=== PATIENT | female | born 1990 | race African-American/Black ===

== ENCOUNTER 2023-02-14 14:45 | Inpatient (IN) | payer OTHER ==
[~2023-02-14] VITALS: Ht 162.6 cm; Wt 97.1 kg
[~2023-02-14 14:45] MED LIST: FERR325E14 PO; IBUP-2213 PO
[2023-02-14] MEDS ORDERED: CARBOPROST 250 MCG/ML AMP IM PRN (15:15)
[2023-02-14] MEDS ORDERED: METHYLERGONOVINE 0.2 MG/ML AMP IM PRN (15:15)
[2023-02-14] MEDS ORDERED: LACTATED RINGERS 500 ML IV SCH (15:30)
[2023-02-14] MEDS ORDERED: AMPICILLIN 2,000 MG in NACL 0.9% MINI-BAG PLUS 100 ML IV ONE (15:30)
[2023-02-14] MEDS: LACTATED RINGERS 1,000 ML IV SCH ×2 (15:36→22:17)
[2023-02-14] MEDS ORDERED: AMPICILLIN 2,000 MG VIAL ONE (15:45)
[2023-02-14 15:50] LABS: BASOPHILS % (AUTO) 0.3 % (0.0-2.0); EOSINOPHILS # (AUTO) 0.1 K/uL (0-0.4); HEMATOCRIT 28.5 % (36-48); HEMOGLOBIN 9.3 g/dL (12.0-16.0); LYMPHOCYTES # (AUTO) 1.9 K/uL (2.5-16.5); LYMPHOCYTES % (AUTO) 19.2 % (20.5-51.1); MEAN CORPUSCULAR HEMOGLOBIN 25 pg (27-31); MEAN CORPUSCULAR HGB CONC 33 g/dL (33-37); MEAN CORPUSCULAR VOLUME 77.6 fL (80-94); MONOCYTES # (AUTO) 0.8 K/uL (0.8-1.0); MONOCYTES % (AUTO) 8.4 % (1.7-9.3); NEUTROPHILS # (AUTO) 7.2 K/uL (1.8-7.7); NEUTROPHILS % (AUTO) 71.1 % (42.2-75.2); PLATELET COUNT (AUTO) 137 K/uL (140-450); RED BLOOD CELL COUNT(AUTO) 3.67 MIL/uL (4.20-5.40); RED CELL DISTRIBUTION WIDTH 15.5 % (11.6-13.7)
[2023-02-14 16:17] LABS: PROTHROMBIN TIME 9.4 secs (10.8-13.4)
[2023-02-14 16:24] LABS: ALBUMIN 2.6 g/dL (3.4-5.0); ANION GAP 14.4 (8-16); CARBON DIOXIDE 21.3 mmol/L (21-32); CREATININE 0.6 mg/dL (0.6-1.3); TOTAL BILIRUBIN 0.3 mg/dL (0.0-1.0)
[2023-02-14 16:26] LABS: POTASSIUM 2.7 mmol/L (3.5-5.1)
--- NOTE | 2023-02-14 16:27 | NUR ---
PATIENT HAS BEEN SCREENED AND CATEGORIZED LOW NUTRITION RISK. PATIENT WILL BE SEEN WITHIN 7 DAYS OF ADMISSION. 02/21/23 REVIEWED BY TAN LE[address]
[2023-02-14] MEDS ORDERED: ROPIVACAINE 0.2%/NS PREMIX 200 ML EPI ONE (16:50)
[2023-02-14] MEDS ORDERED: KCL 20 MEQ IN 100 mL PREMIX 200 ML IV SCH (17:00)
[2023-02-14 17:02] LABS: BILIRUBIN,URINE NEGATIVE (NEGATIVE); BLOOD, URINE TRACE-I (NEGATIVE); COLOR,URINE YELLOW (YELLOW); LEUKOCYTE ESTERASE ,URINE 1+ (NEGATIVE); NITRITE, URINE NEGATIVE (NEGATIVE); UGLUCOSE NEGATIVE (NEGATIVE)
[2023-02-14 17:26] LABS: APPEARANCE,URINE HAZY (CLEAR)
[2023-02-14] MEDS ORDERED: ROPIVACAINE 0.2%/NS PREMIX 200 ML EPI SCH (17:35)
[2023-02-14 17:44] LABS: BARBITURATE, URINE NEGATIVE ng/ml (NEG <=200); BENZODIAZEPINE, URINE NEGATIVE ng/mL (NEG <=200); CANNABINOID, URINE NEGATIVE ng/mL (NEG <=50); COCAINE, URINE NEGATIVE ng/mL (NEG <=300); OPIATE, URINE NEGATIVE ng/mL (NEG <=2000); PHENCYCLIDINE SCREEN,URINE NEGATIVE ng/mL (NEG <=25)
[2023-02-14 18:00] LABS: RBC,URINE 0-5 /HPF (0-5)
[2023-02-14] MEDS ORDERED: AMPICILLIN 1,000 MG VIAL ONE ×2 (19:33→23:22)
[2023-02-14] MEDS: AMPICILLIN 1,000 MG in NACL 0.9% MINI-BAG PLUS 50 ML IV SCH ×2 (19:37→23:33)
[2023-02-14] MEDS ORDERED: OXYTOCIN 20 UNITS in LACTATED RINGERS 1,000 ML IV SCH (21:25)
[2023-02-14] MEDS ORDERED: OXYTOCIN 20 UNITS/LR PREMIX 1,000 ML IV ONE (21:30)
[2023-02-15] MEDS ORDERED: AMPICILLIN 1,000 MG VIAL ONE (03:23)
[2023-02-15] MEDS: AMPICILLIN 1,000 MG in NACL 0.9% MINI-BAG PLUS 50 ML IV SCH (03:31)
[2023-02-15] MEDS ORDERED: LIDOCAINE 1% 500 MG/50 ML VIAL ONE (05:36)
[2023-02-15] MEDS ORDERED: MORPHINE SULFATE 10 MG/ML VIAL ONE (05:41)
[2023-02-15] MEDS ORDERED: BENZOCAINE/MENTHOL 20%-0.5% 60 GM CAN TP PRN (05:45)
[2023-02-15] MEDS ORDERED: OXYTOCIN 10 UNITS/ML VIAL IM PRN (05:45)
[2023-02-15] MEDS ORDERED: METHYLERGONOVINE 0.2 MG/ML AMP IM PRN (05:45)
[2023-02-15] MEDS ORDERED: TEMAZEPAM 15 MG CAP PO PRN (05:45)
[2023-02-15] MEDS ORDERED: oxyCODONE/APAP 5/325 MG 1 TAB TAB PO PRN (05:45)
[2023-02-15] MEDS ORDERED: METHYLERGONOVINE 0.2 MG TAB PO PRN (05:45)
[2023-02-15] MEDS: IBUPROFEN 800 MG TAB PO PRN (08:39)
[2023-02-15] MEDS: oxyCODONE/APAP 5/325 MG 1 TAB TAB PO PRN (11:47)
[2023-02-15] MEDS ORDERED: DOCUSATE SOD/SENNA 50/8.6 MG 1 TAB PO SCH (21:00)
[2023-02-16] MEDS: oxyCODONE/APAP 5/325 MG 1 TAB TAB PO PRN ×3 (06:15→19:54)
[2023-02-16 06:58] LABS: HEMOGLOBIN 9.1 g/dL (12.0-16.0)
[2023-02-16] MEDS: IBUPROFEN 800 MG TAB PO PRN (23:51)
[2023-02-17] MEDS: oxyCODONE/APAP 5/325 MG 1 TAB TAB PO PRN ×3 (06:34→12:38)
== END 2023-02-17 13:05 | disposition home or self-care (01) | DRG 560 ==
LOC: MLD 14:45 → MFCC 02-15 09:00
PROVIDERS: ADMIT Obstetrics & Gynecology; ATTEND Obstetrics & Gynecology
PROC: 10E0XZZ Delivery of Products of Conception, External Approach (ICD-10-PCS; principal; 2023-02-15)
PROC: 3E0234Z Introduction of Serum, Toxoid and Vaccine into Muscle, Percutaneous Approach (ICD-10-PCS; 2023-02-15)
DX: O80 Encounter for full-term uncomplicated delivery (principal); Z37.0 Single live birth; Z20.822 Contact with and (suspected) exposure to COVID-19; Z23 Encounter for immunization; Z3A.39 39 weeks gestation of pregnancy
CPT/HCPCS: 36415; 51702; 59409; 80053; 80305; 81001; 85018; 85025; 85610; 85730; 86592; 86850; 86886; 86900; 86901; 87086; J0290; J2001; J2270; J2590; J2790; J2795; J3480